=== PATIENT | female | born 1970 | race Caucasian/White ===

== ENCOUNTER → 2019-04-03 | Outpatient (CLI) | payer OTHER ==
[2019-04-03 18:41] LABS: C REACTIVE PROTEIN QUANTITATIV 1.37 MG/DL (0.00-0.30); COMPLEMENT C3 140 MG/DL (90-180); COMPLEMENT C4 22 MG/DL (10-40); CPK CREATINE PHOSPHOKINASE 136 U/L (26-192); RHEUMATOID FACTOR QUANT < 10.0 IU/ML (<15.0); THYROID STIMULATING HORMONE 0.127 uIU/ML (0.358-3.740); URIC ACID 5.4 MG/DL (2.6-6.0)
--- NOTE | 2019-04-03 18:41 | REP ---
Clinical: Polyarthralgia. Technique: AP, lateral, bilateral oblique coned-down views of the lumbosacral spine. Findings: Alignment and lordosis maintained. Vertebral bodies are intact. No acute fracture / compression injury or subluxation. Mild/Moderate multilevel degenerative changes include marginal spurring/osteophyte formation, endplate sclerosis, and hypertrophic facet changes. Impression: Mild/Moderate multilevel degenerative spondylosis. Electronically Signed by Robert Zurita MD 04/03/2019 06:33 P
--- NOTE | 2019-04-03 18:43 | REP ---
Clinical: Polyarthralgia. Technique: Frontal view of the pelvis with neutral and frog lateral views of the bilateral hips. Findings: No acute fracture or dislocation. Mild symmetric degenerative changes to the hips includes increase sclerosis to the acetabular roof with minimal joint space narrowing. Impression: Mild symmetric age-related degenerative changes. Electronically Signed by Robert Zurita MD 04/03/2019 06:35 P
--- NOTE | 2019-04-03 18:47 | REP ---
Clinical: Polyarthralgia. Technique: AP, AP angled, and bilateral oblique views of the sacroiliac joints. Findings: Mild symmetric periarticular sclerosis is appreciated. No fracture or subluxation identified. Impression: Mild sacroiliitis cannot be excluded. Electronically Signed by Robert Zurita MD 04/03/2019 06:39 P
--- NOTE | 2019-04-03 18:51 | REP ---
Clinical: Polyarthralgia. Technique: AP, lateral, bilateral oblique and sunrise views of the right and left knee. Findings: Very minimal early age-related arthritic changes are appreciated bilaterally. Findings include subtle cortical irregularity to the femoral condyles, very early spurring along the medial joint spaces and along the patellar margin. No acute fracture dislocation. No effusion. Impression: Minimal relatively symmetric early degenerative changes. Electronically Signed by Robert Zurita MD 04/03/2019 06:43 P
[2019-04-09 00:06] LABS: ANTI DS-DNA AB Negative (Negative); CYCLIC CITRULLINATED PEPTIDE 10 units (0-19); HLA-B27 Negative (.); RNP ANTIBODY < 0.2 AI (0.0-0.9); SMITHS ANTIBODY < 0.2 AI (0.0-0.9); SSA SJOGRENS A <0.2 AI (0.0-0.9); SSB SJOGRENS B <0.2 AI (0.0-0.9)
== END ==
LOC: M LAB 16:30
PROVIDERS: ATTEND Internal Medicine
DX: R76.8 Other specified abnormal immunological findings in serum (principal); M25.50 Pain in unspecified joint

== ENCOUNTER → 2021-01-04 | Outpatient (REF) | payer OTHER ==
[2021-01-06 21:09] LABS: ANA (HEP2) Negative (.)
== END ==
LOC: M SFHCRHEU 15:41
PROVIDERS: ATTEND Internal Medicine
DX: Z01.89 Encounter for other specified special examinations (principal)

== ENCOUNTER → 2021-01-25 | Outpatient (CLI) | payer OTHER ==
--- NOTE | 2021-01-25 15:51 | REP ---
INDICATION: DORSALGIA, ABNORMAL XRAY. COMPARISON: Radiographs 04/03/2019. TECHNIQUE: Multiple sequences obtained in the axial, coronal and sagittal planes. FINDINGS: The osseous structures of the pelvis demonstrate no abnormal bone marrow signal. There is no evidence of occult fracture or bone marrow edema. There is no evidence of significant sacroiliitis. No bone lesion is seen. There is mild bilateral greater trochanteric tendonobursitis. No adenopathy is seen in the pelvis. There is no free fluid. The uterus is mildly enlarged, the length is 13.5 cm. The junctional zone is not well-defined. I cannot exclude adenomyosis. The endometrial thickness is 4 mm. There are multiple nabothian cysts in the region of the cervix up to 11 mm in diameter. There is an oval nodule of the left lower uterine segment which appears to represent a subserosal fibroid having a maximum diameter of 3 cm. There is an uncomplicated cyst of the right ovary 3.1 cm in maximum diameter. IMPRESSION: No osseous abnormality. No evidence of sacroiliitis. Mild bilateral greater trochanteric tendonobursitis. Mild enlargement of the uterus with ill-defined junctional zone, adenomyosis is not excluded. There appears to be a subserosal fibroid of the left lower uterine segment with maximum diameter 3 cm. Uncomplicated cyst right ovary 3.1 cm in maximum diameter. <Electronically signed by Randall Shook > 01/25/21 [id number]
== END ==
LOC: M PLAIMG 12:20
PROVIDERS: ATTEND Internal Medicine
DX: M54.9 Dorsalgia, unspecified (principal)

== ENCOUNTER → 2021-05-24 | Outpatient (REF) | payer OTHER ==
[2021-05-24 17:19] LABS: PHOSPHORUS LEVEL 4.4 MG/DL (2.5-4.9)
[2021-05-24 18:25] LABS: TOTAL 25(OH) VITAMIN D 29.4 NG/ML (30.0-100.0)
== END ==
LOC: M SFHCRHEU 13:16
PROVIDERS: ATTEND Internal Medicine
DX: E55.9 Vitamin D deficiency, unspecified (principal); E83.39 Other disorders of phosphorus metabolism

== ENCOUNTER → 2022-01-05 | Outpatient (REF) | payer OTHER ==
[2022-01-05 18:55] LABS: PHOSPHORUS LEVEL 3.9 MG/DL (2.5-4.9); TOTAL 25(OH) VITAMIN D 58.8 NG/ML (20.0-100.0)
== END ==
LOC: M SFHCRHEU 12:38
PROVIDERS: ATTEND Internal Medicine
DX: E55.9 Vitamin D deficiency, unspecified (principal); E83.39 Other disorders of phosphorus metabolism